=== PATIENT | male | born 1990 | race Caucasian/White ===

== ENCOUNTER 2016-05-23 14:51 | Emergency (ER) | payer OTHER ==
[2016-05-23 15:01] VITALS: BP 164/92
[2016-05-23] MEDS ORDERED: Proparacaine 0.5% Ophth Soln 15 ML Bottle EYEBOTH STA (15:04)
[2016-05-23] MEDS ORDERED: Benoxinate/Fluorescein 0.4-0.25% Ophth Soln 5 ML Bottle EYEBOTH STA (15:04)
--- NOTE | 2016-05-23 15:25 | EDM.PDOC ---
ED HPI EYE COMPLAINT - General Chief Complaint: Eye Problems Stated Complaint: FOREIGN OBJECT IN R EYE Time Seen by Provider: 05/23/16 15:00 Source: Reports: Patient History Limitations: Reports: No limitations - History of Present Illness INITIAL COMMENTS - FREE TEXT/NARRATIVE: Patient presents for evaluation and treatment of foreign body sensation to the right eye. Patient reports that he appreciated this shortly after going on a run yesterday. He describes this as an annoyance. States that his eye is red, watery and irritated. He denies any vision changes or purulent discharge from the right eye. He reports only watering from the right eye. Patient does not wear glasses or contacts. States he has tried irrigating the eye without much symptom relief. - Related Data Allergies/ADRs: Allergies Penicillins Allergy (Verified 05/23/16 15:01) Nausea and Vomiting Home Meds: Ambulatory Orders Medication Instructions Recorded Confirmed Gentamicin Sulfate [Gentak] 3.5 gm OP TID #1 oint...g. 05/23/16 Past Medical History - Past Health History Medical/Surgical History: Denies Medical/Surgical History - Past Surgical History GI Surgical History: Reports: Hernia repair/other Social & Family History - Tobacco Use Smoking Status *Q: Never Smoker - Caffeine Use Caffeine Use: Reports: None - Recreational Drug Use Recreational Drug Use: No ED ROS GENERAL - Review of Systems Review Of Systems: See Below HEENT: Reports: Eye discharge (right watery), Eye pain (right). Denies: Vision change ED EXAM GENERAL W FULL EYE - Physical Exam Exam: See Below Exam Limited By: No limitations General Appearance: alert, WD/WN, no apparent distress Eyelids: right: foreign body (discovered to the right lateral superior lid), lid everted for exam Conjunctiva & Sclera: right: injected Cornea Exam: right: examined with flourescein, bilateral: normal appearance Extraocular Movements: bilateral: intact Pupils: normal accommodation Pupillary Reaction: bilateral: brisk Anterior Chamber: bilateral: normal appearance Respiratory/Chest: no respiratory distress Neurological: alert, oriented, normal cognition Psychiatric: normal affect, normal mood Skin Exam: Warm, Dry Course - Vital Signs Last Recorded V/S: Last Vital Signs Temp 36.6 C 05/23/16 14:58 Pulse 83 05/23/16 14:58 Resp 16 05/23/16 14:58 BP 164/92 H 05/23/16 14:58 Pulse Ox 98 05/23/16 14:58 - Orders/Labs/Meds Meds: Medications Discontinued Medications Generic Name Dose Route Start Last Admin Trade Name Monserrat PRSlime Reason Stop Dose Admin Fluorescein Sodium/Benoxinate HCl 2 ml 05/23/16 15:04 05/23/16 15:09 Fluress Ophth Soln EYEBOTH 05/23/16 15:05 2 ml NOW STA Administration Proparacaine HCl 2 ml 05/23/16 15:04 05/23/16 15:09 Proparacaine 0.5% Ophth Soln EYEBOTH 05/23/16 15:05 2 ml NOW STA Administration - Re-Assessments/Exams Free Text/Narrative Re-Assessment/Exam: 05/23/16 15:18 Foreign body identified and removed. No corneal abrasion appreciated. Will start abx do to the length of time the foreign body was in the eye. Discharge instructions as documented. Departure - Departure Time of Disposition: 15:20 Disposition: Home, Self-Care 01 Condition: good Clinical Impression: Foreign body of right eye Prescriptions: Gentamicin Sulfate [Gentak] 3.5 gm OP TID #1 oint...g. Instructions: Eye Foreign Body, [id number] Referrals: Dada Bishop Jr, MD [Primary Care Provider] - Forms: ED Department Discharge Additional Instructions: Gentak ointment to the right lower lid tid x 7 days. Blink to disperse the ointment. OTC tylenol or motrin as needed for pain. Follow-up with optometry if your symptoms persist beyond a week. Please return to the ER should your symptoms change or worsen.
== END 2016-05-23 15:30 | disposition home or self-care (01) ==
LOC: JD.ED 14:51
DX: T15.11XA Foreign body in conjunctival sac, right eye, initial encounter (principal); Z88.0 Allergy status to penicillin; X58.XXXA Exposure to other specified factors, initial encounter; Z98.890 Other specified postprocedural states
CPT/HCPCS: 65205; 65222; 99283; 99283-25